=== PATIENT | male | born 1990 | race Two or more races ===

== ENCOUNTER 2016-12-23 10:43 | Emergency (ER) | payer SELFPAY ==
[2016-12-23 10:50] VITALS: BP 125/69; PULSE 81; TEMP 97.8; BMI 27.7
[2016-12-23] MEDS ORDERED: IBUPROFEN 600 MG TABLET (FP) PO ONE ×2 (11:22→11:24)
[2016-12-23] MEDS ORDERED: DIPHTH,PERTUSS(ACELL),TET 0.5 ML DISP.SYRIN IM ONE (11:22)
--- NOTE | 2016-12-23 11:28 | PDOC ---
History of Present Illness - General Chief Complaint: Injury Stated Complaint: CUT ON FINGER Time Seen by Provider: 12/23/16 11:06 History Source: Patient Exam Limitations: No Limitations - History of Present Illness Initial Comments: 12/23/16 11:23 26 yr male no PMH with laceration to left index finger sustained last night while using a knife to open the top of a can. Pt states the wound continues to bleed. Occurred: reports: yesterday Severity: reports: mild Past History - Past Medical History Allergies/Adverse Reactions: Allergies Allergy/AdvReac Type Severity Reaction Status Date / Time No Known Allergies Allergy Verified 12/23/16 10:44 Home Medications: Ambulatory Orders NK [No Known Home Medication] 12/23/16 Other medical history: denies - Psycho/Social/Smoking Cessation Hx Anxiety: No Suicidal Ideation: No Smoking History: Former smoker Have you smoked in the past 12 months: Yes Information on smoking cessation initiated: No Hx Alcohol Use: Yes (social) Drug/Substance Use Hx: No Substance Use Type: None Review of Systems - Review of Systems Able to Perform ROS?: Yes Is the patient limited Croatian proficient: No Constitutional: No: Symptoms Reported HEENTM: No: Symptoms Reported Respiratory: No: Symptoms reported Cardiac (ROS): No: Symptoms Reported ABD/GI: No: Symptoms Reported : No: Symptoms Reported Integumentary: Yes: See HPI *Physical Exam - Vital Signs Last Vital Signs Temp Pulse Resp BP Pulse Ox 97.8 F 81 20 125/69 100 12/23/16 10:45 12/23/16 10:45 12/23/16 10:45 12/23/16 10:45 12/23/16 10:45 - Physical Exam General Appearance: Yes: Nourished, Appropriately Dressed HEENT: positive: EOMI, [place] Extremity: positive: Normal Range of Motion, Other (laceration to the left index finger on the medial side. nv intact 5/5 strength FROM, active bleeding) Integumentary: positive: Normal Color, Dry, Warm Neurologic: positive: Fully Oriented, Alert, Normal Mood/Affect, Normal Response , Motor Strength 5/5 Procedures - Laceration/Wound Repair Left Medial 2nd digit Wound Length: to 2.5 cm Wound Explored: clean Wound's Depth, Shape: flap Irrigated w/ Saline: Yes Betadine Prep: Yes Wound Repaired With: Sutures Suture Size/Type: 4:0, nylon Number of Sutures: 4 Layer Closure: No Sterile Dressing Applied: Yes Splint Applied: Yes Type of Splint Applied: finger Medical Decision Making - Medical Decision Making 12/23/16 11:25 cc: finger laceration FROM nv intact no tendon deficit sutured close and splinted update tetanus return in 10 days for suture removal *DC/Admit/Observation/Transfer Diagnosis at time of Disposition: Finger laceration Qualifiers: Encounter type: initial encounter Qualified Code(s): S61.219A - Laceration without foreign body of unspecified finger without damage to nail, initial encounter - Discharge Dispostion Disposition: HOME Condition at time of disposition: Improved - Referrals Referrals: Austin Bella MD [Staff Physician] - - Patient Instructions Additional Instructions: use the splint for the next 48hrs at all times then remove the splint and bandage and range the finger to prevent stiffness apply a thin layer of topical antibiotic like bacitracin or neosporin daily DO NOT GET WET use the splint during the day you can remove at night return in 7-10 days for suture removal Return sooner if any pain, redness drainage or concerns you can also follow with the plastic surgeon if any concerns - Post Discharge Activity Work/School Note: Back to Work
== END 2016-12-23 11:37 | disposition home or self-care (01) ==
LOC: JERFT 10:43
PROC: 3E0234Z Introduction of Serum, Toxoid and Vaccine into Muscle, Percutaneous Approach (ICD-10-PCS; principal; 2016-12-23)
PROC: 0HQGXZZ Repair Left Hand Skin, External Approach (ICD-10-PCS; 2016-12-23)
PROC: 2W3KX1Z Immobilization of Left Finger using Splint (ICD-10-PCS; 2016-12-23)
DX: S61.211A Laceration without foreign body of left index finger without damage to nail, initial encounter (principal); W26.0XXA Contact with knife, initial encounter; Y93.G1 Activity, food preparation and clean up; Y92.018 Other place in single-family (private) house as the place of occurrence of the external cause
CPT/HCPCS: 90715; 99282-25